=== PATIENT | female | born 1950 | race Caucasian/White ===

== ENCOUNTER 2023-12-06 06:19 | Inpatient (IN) ==
[~2023-12-06 06:19] MED LIST: Metoclopramide 5 MG/ML VIAL (10 mg) IV PRN; NS 0.45% 1000 ml BAG 1,000 ML IV SCH; Naloxone 0.4 mg VIAL 0.4 mg/ml 1 ml VIAL IV PRN; Ondansetron 4 mg VIAL 2 MG/ML 2 ml VIAL IV PRN; fentaNYL 100 mcg/2 ml 50 MCG/ML VIAL IV PRN
[2023-12-06] MEDS ORDERED: Vancomycin 1,000 MG VIAL ONE (07:04)
[2023-12-06] MEDS: Buffered Lidocaine 1% SYRIN 1 ml INTRADERM ONE (07:16)
[2023-12-06 07:28] LABS: Rapid COVID-19 Molecular Undetected (Undetected)
[2023-12-06] MEDS ORDERED: Scopolamine 1 mg/72hr PATCH ONE (07:37)
[2023-12-06] MEDS ORDERED: Tranexamic Acid 1 GM/100ML BAG 2,000 MG/200 ML BAG IV ONE (07:37)
[2023-12-06] MEDS ORDERED: ceFAZolin 2 GM in NS PREMIX 2 GM/100 ML BAG IVPB ONE (07:38)
[2023-12-06] MEDS ORDERED: fentaNYL 100 mcg/2 ml 50 MCG/ML VIAL ONE ×2 (07:46→10:00)
[2023-12-06] MEDS ORDERED: Dexamethasone IV 4 MG/ML VIAL 1 ml VIAL ONE ×2 (07:46→07:53)
[2023-12-06] MEDS ORDERED: Midazolam 2 mg/2 ml VIAL 1 mg/ml 2 ml VIAL (2 mg) ONE (07:46)
[2023-12-06] MEDS ORDERED: ROPIVACAINE 5 MG/ML 30 ML BTL (0.5%) ONE (07:46)
[2023-12-06] MEDS ORDERED: Lidocaine 2% PF 5 ML VIAL ONE ×2 (07:46→07:53)
[2023-12-06] MEDS ORDERED: Ondansetron 4 mg VIAL 2 MG/ML 2 ml VIAL ONE (07:53)
[2023-12-06] MEDS ORDERED: Propofol 10 MG/ML 20 ML BTL ONE (07:53)
[2023-12-06] MEDS ORDERED: Rocuronium 50 mg VIAL 10 mg/ml 5 ml VIAL (50 mg) ONE (07:55)
[2023-12-06] MEDS ORDERED: Sevoflurane BOTTLE ONE (07:57)
[2023-12-06] MEDS: Lactated Ringers 1000 ml BAG 1,000 ML IV SCH (08:00)
[2023-12-06] MEDS: Scopolamine 1 mg/72hr PATCH TRANSDERM ONE (08:01)
[2023-12-06] MEDS ORDERED: Phenylephrine 40 mcg/mL 10mL (400mcg) SYRINGE ONE (08:02)
[2023-12-06] MEDS ORDERED: Phenylephrine IV 10 MG/ML 1 ml VIAL ONE (09:29)
[2023-12-06] MEDS ORDERED: KETAMINE HCL 10 MG/ML 20 ml VIAL (200 MG) ONE (09:59)
[2023-12-06] MEDS ORDERED: Magnesium Hydroxide LIQ 30 ML UDC PO PRN (12:27)
[2023-12-06] MEDS ORDERED: Ondansetron ODT 4 mg TAB 4 MG TAB PO PRN (12:27)
[2023-12-06] MEDS ORDERED: Lactulose 30 ml UDC PO PRN (12:27)
[2023-12-06] MEDS ORDERED: Ondansetron 4 mg VIAL 2 MG/ML 2 ml VIAL IV PRN (12:27)
[2023-12-06] MEDS ORDERED: Morphine 2 MG/ML SYRINGE IV PRN (12:27)
[2023-12-06] MEDS: Acetaminophen IV 1 GM/100ML 1,000 MG/100 ML BAG IV ONE (14:23)
[2023-12-06] MEDS ORDERED: ceFAZolin 1 GM ADVAN 1 GM in NS 0.9% 50 ML 50 ML IVPB SCH (17:00)
[2023-12-06 17:19] VITALS: BP 128/70
[2023-12-06] MEDS ORDERED: Magnesium Hydroxide LIQ 30 ML UDC PO SCH (21:00)
[2023-12-07] MEDS ORDERED: Vitamin THERAPEUTIC TAB PO SCH (09:00)
== END 2023-12-06 18:30 | disposition home or self-care (01) | DRG 483 ==
LOC: AA 06:19 → SSU 13:54
PROVIDERS: ADMIT Orthopaedic Surgery; ATTEND Orthopaedic Surgery